=== PATIENT | female | born 1970 | race Caucasian/White ===

== ENCOUNTER → 2020-10-27 | Day surgery (SDC) | payer OTHER ==
[~2020-10-27] VITALS: Ht 157.5 cm; Wt 57.7 kg
[~2020-10-27] MED LIST: VIT D PO
== END | disposition home or self-care (01) ==
LOC: FAS 10-21 08:00
DX: R10.31 Right lower quadrant pain (principal); R10.32 Left lower quadrant pain; K58.1 Irritable bowel syndrome with constipation; Z91.09 Other allergy status, other than to drugs and biological substances; Z86.79 Personal history of other diseases of the circulatory system
CPT/HCPCS: J2250; J7120